=== PATIENT | male | born 1985 | race American Indian/Alaskan Native ===

== ENCOUNTER 2018-04-28 14:53 | Outpatient (CLI) | payer OTHER ==
--- NOTE | 2018-04-28 23:08 | XRay Report ---
FINAL REPORT PROCEDURE: XR NECK SOFT TISSUE TECHNIQUE: Soft tissue neck radiographs, 2 views, including AP and lateral. CPT 12373 HISTORY: DISABILITY EXAM, SCIATICA OF RIGHT SIDE, CERVICALGIA COMPARISON: No prior studies are available for comparison. FINDINGS: Bone mineralization: Normal. Alignment: There is straightening of the cervical spine. There is mild degree disc space narrowing from C4-5 to C6-7 levels with mild degree marginal osteophyte formation Soft tissues: Epiglottis and hypopharyngeal soft tissues normal. Foreign bodies: None. IMPRESSION: Mild degree cervical spondylosis from C4-5 to C6-7
== END 2018-04-28 14:54 | disposition home or self-care (01) ==
LOC: XRAY 14:53
PROVIDERS: ATTEND Internal Medicine
DX: Z02.71 Encounter for disability determination (principal); M47.892 Other spondylosis, cervical region; M54.31 Sciatica, right side
CPT/HCPCS: 70360; 72110